=== PATIENT | female | born 1990 | race American Indian/Alaskan Native ===

== ENCOUNTER 2019-06-30 07:25 | Observation (INO) | payer MEDICAID ==
[2019-06-30] MEDS ORDERED: ONDANSETRON 4 MG ODT TAB ONE (07:36)
[2019-06-30] MEDS ORDERED: ONDANSETRON 4 MG ODT TAB PO ONE (07:36)
[2019-06-30] MEDS ORDERED: ONDANSETRON 4 MG/2 ML INJ ONE (08:09)
[2019-06-30] MEDS ORDERED: ONDANSETRON 4 MG/2 ML INJ IV ONE (08:10)
[2019-06-30] MEDS ORDERED: LACTATED RINGERS 1,000 ML IV ONE (08:54)
--- NOTE | 2019-06-30 08:59 | Emergency Department Report ---
ED HPI - General Chief complaint: Nausea/Vomiting/Diarrhea Stated complaint: 3MONTHS /VOMTING/SPOTTING Time Seen by Provider: 06/30/19 08:34 Source: patient Mode of arrival: Ambulatory Limitations: No Limitations - History of Present Illness Initial comments: 28-year-old -[place] female patient without significant past medical history presents with complaints of nausea/vomiting, right upper quadrant pain, and vaginal spotting x2 days. Patient states she is 12 weeks and is currently following with Dr. Gustafson. She denies any fever/chills/sweats, hematemesis/coffee-ground emesis, diarrhea, cough, shortness of breath, chest pain, vaginal discharge, dysuria/hematuria/urinary frequency, or pelvic pain. She rates her current right upper quadrant pain as a 8/10 in severity and states the pain began in her abdomen before the nausea and vomiting. MD Complaint: abdominal pain, vaginal bleeding -: Sudden Radiation: RUQ Severity: severe Severity scale (0 -10): 8 Quality: cramping, stabbing Consistency: constant Improves with: none - Related Data Allergies Allergy/AdvReac Type Severity Reaction Status Date / Time No Known Allergies Allergy Unverified 06/30/19 07:34 ED Review of Systems ROS: Stated complaint: 3MONTHS /VOMTING/SPOTTING Other details as noted in HPI Constitutional: denies: chills, fever Eyes: denies: eye pain, eye discharge, vision change ENT: denies: throat pain Respiratory: denies: cough, shortness of breath Cardiovascular: denies: chest pain, palpitations, edema, syncope Endocrine: denies: excessive sweating Gastrointestinal: abdominal pain, nausea, vomiting, constipation. denies: diarrhea, hematemesis, melena, hematochezia Genitourinary: denies: urgency, dysuria, frequency, hematuria, dyspareunia Musculoskeletal: denies: joint swelling Skin: denies: rash, lesions Neurological: denies: headache Hematological/Lymphatic: denies: easy bleeding ED Past Medical Hx - Past Medical History Previous Medical History?: No - Surgical History Past Surgical History?: No ED Physical Exam - General Limitations: No Limitations General appearance: alert, in no apparent distress - Head Head exam: Present: atraumatic, normocephalic - Eye Eye exam: Present: normal appearance. Absent: scleral icterus - ENT ENT exam: Present: normal exam - Neck Neck exam: Present: normal inspection - Respiratory Respiratory exam: Present: normal lung sounds bilaterally. Absent: respiratory distress - Cardiovascular Cardiovascular Exam: Present: regular rate, normal rhythm. Absent: systolic murmur, diastolic murmur, rubs, gallop - GI/Abdominal GI/Abdominal exam: Present: soft, tenderness (Right upper quadrant with positive Irizarry sign), normal bowel sounds. Absent: distended, guarding, rebound, rigid, organomegaly - Extremities Exam Extremities exam: Present: normal inspection - Back Exam Back exam: Present: normal inspection. Absent: CVA tenderness (R), CVA tenderness (L) - Neurological Exam Neurological exam: Present: alert, oriented X3 - Psychiatric Psychiatric exam: Present: normal affect, normal mood - Skin Skin exam: Present: warm, dry, intact, normal color. Absent: rash, cyanosis, diaphoretic, erythema ED Course Vital Signs 06/30/19 06/30/19 07:34 15:01 Temperature 98.4 F Pulse Rate 100 H Respiratory 20 18 Rate Blood Pressure 123/88 O2 Sat by Pulse 98 99 Oximetry ED Medical Decision Making - Lab Data Result diagrams: 06/30/19 10:13 06/30/19 10:13 Lab Results 06/30/19 06/30/19 06/30/19 Range/Units 10:13 10:13 10:13 WBC 11.7 H (4.5-11.0) K/mm3 RBC 4.74 (3.65-5.03) M/mm3 Hgb 10.9 (10.1-14.3) gm/dl Hct 34.1 (30.3-42.9) % MCV 72 L (79-97) fl MCH 23 L (28-32) pg MCHC 32 (30-34) % RDW 16.7 H (13.2-15.2) % Plt Count 244 (140-440) K/mm3 Lymph % (Auto) 18.1 (13.4-35.0) % Porter % (Auto) 7.0 (0.0-7.3) % Eos % (Auto) 0.2 (0.0-4.3) % Baso % (Auto) 0.8 (0.0-1.8) % Lymph # 2.1 (1.2-5.4) K/mm3 [place] # 0.8 (0.0-0.8) K/mm3 Eos # 0.0 (0.0-0.4) K/mm3 Baso # 0.1 (0.0-0.1) K/mm3 Seg Neutrophils % 73.9 H (40.0-70.0) % Seg Neutrophils # 8.6 H (1.8-7.7) K/mm3 Sodium 134 L (137-145) mmol/L Potassium 4.0 (3.6-5.0) mmol/L Chloride 97.5 L (98-107) mmol/L Carbon Dioxide 20 L (22-30) mmol/L Anion Gap 21 mmol/L BUN 8 (7-17) mg/dL Creatinine 0.6 L (0.7-1.2) mg/dL Estimated GFR > 60 ml/min BUN/Creatinine Ratio 13 % Glucose 92 (65-100) mg/dL Calcium 9.3 (8.4-10.2) mg/dL Total Bilirubin (0.1-1.2) mg/dL Direct Bilirubin (0-0.2) mg/dL Indirect Bilirubin mg/dL AST (5-40) units/L ALT (7-56) units/L Alkaline Phosphatase (35-129) units/L Total Protein (6.3-8.2) g/dL Albumin (3.9-5) g/dL Albumin/Globulin Ratio % Lipase (13-60) units/L HCG, Quant (0-4) mIU/mL Blood Type A POSITIVE 06/30/19 06/30/19 Range/Units 10:13 10:13 WBC (4.5-11.0) K/mm3 RBC (3.65-5.03) M/mm3 Hgb (10.1-14.3) gm/dl Hct (30.3-42.9) % MCV (79-97) fl MCH (28-32) pg MCHC (30-34) % RDW (13.2-15.2) % Plt Count (140-440) K/mm3 Lymph % (Auto) (13.4-35.0) % [place] % (Auto) (0.0-7.3) % Eos % (Auto) (0.0-4.3) % Baso % (Auto) (0.0-1.8) % Lymph # (1.2-5.4) K/mm3 Porter # (0.0-0.8) K/mm3 Eos # (0.0-0.4) K/mm3 Baso # (0.0-0.1) K/mm3 Seg Neutrophils % (40.0-70.0) % Seg Neutrophils # (1.8-7.7) K/mm3 Sodium (137-145) mmol/L Potassium (3.6-5.0) mmol/L Chloride (98-107) mmol/L Carbon Dioxide (22-30) mmol/L Anion Gap mmol/L BUN (7-17) mg/dL Creatinine (0.7-1.2) mg/dL Estimated GFR ml/min BUN/Creatinine Ratio % Glucose (65-100) mg/dL Calcium (8.4-10.2) mg/dL Total Bilirubin 0.60 (0.1-1.2) mg/dL Direct Bilirubin 0.4 H (0-0.2) mg/dL Indirect Bilirubin 0.2 mg/dL AST 14 (5-40) units/L ALT 15 (7-56) units/L Alkaline Phosphatase 57 (35-129) units/L Total Protein 7.5 (6.3-8.2) g/dL Albumin 3.6 L (3.9-5) g/dL Albumin/Globulin Ratio 0.9 % Lipase 19 (13-60) units/L HCG, Quant 92558 H (0-4) mIU/mL Blood Type - Radiology Data Radiology results: report reviewed LIMITED RUQ ABDOMINAL ULTRASOUND INDICATION: RUQ PAIN. COMPARISON: No relevant prior imaging study available. FINDINGS: Pancreas: Visualized portions show no significant abnormality. Abdominal Aorta: No significant abnormality. IVC: No significant abnormality. Liver: The liver measures 18.6 cm in length. No significant abnormality. Normal hepatopedal blood flow in the main portal vein. Gallbladder: A large gallstone measuring up to 2.3 cm is identified in the gallbladder. No abnormal distention, wall thickening or surrounding fluid.. Bile ducts: No significant abnormality. Common bile duct measures 1 mm. Right kidney: No significant abnormality visualized.. Free fluid: None. Additional Findings: None. IMPRESSION: Large gallstone. No evidence for acute cholecystitis.. FIRSTTRIMESTER OBSTETRIC ULTRASOUND ULTRASOUND OB TRANSVAGINAL HISTORY: Vaginal bleeding COMPARISON: None. TECHNIQUE: Routine transabdominal and transvaginal OB ultrasound performed. FINDINGS: Uterus: Mildly enlarged measuring 12.9 x 8.7 x 10.3 cm. Gestational Sac: Well-defined oval shape and intrauterine in location. Yolk Sac: Not seen Fetus/Embryo: [place]-rump length of 6.38 cm, corresponding to an estimated gestational age of 12 weeks 5 days. Embryonic/ anatomy is too small for evaluation. Embryonic/ cardiac activity: 159bpm Placenta: Appears to be forming anteriorly Amniotic fluid volume: Subjectively appropriate for gestational age. Ovaries: The right ovary is not visualized. The left ovary is normal in size and appearance with normal blood flow, measuring 2.9 x 1.2 x 1.7 cm. Additional findings: None. IMPRESSION Early live intrauterine . - Medical Decision Making 28-year-old 12-week patient presents with complaints of sudden onset of right upper quadrant pain with nausea/vomiting and mild lower abdominal cramping and bleeding. Patient follows with ZAYNAB Wagner. OB ultrasound shows healthy viable 12-week 5-day without complications. Right upper quadrant ultrasound shows large gallstones without cholecystitis or obstruction. WBCs on CBC = 11.7. Patient is afebrile. Patient symptoms are consistent with biliary colic. Patient given Reglan and Benadryl with lactated Ringer's fluid. On p.o. challenge, patient unable to tolerate oral intake due to increase in biliary colic. Discussed patient with ZAYNAB Platt-advises admission for observation. Vitals are stable and patient is nontoxic-appearing at this time. Critical care attestation.: If time is entered above; I have spent that time in minutes in the direct care of this critically ill patient, excluding procedure time. ED Disposition Clinical Impression: Biliary colic, Gallstones Disposition: OP ADMIT IP TO THIS HOSP Is pt being admited?: Yes Condition: Stable
[2019-06-30] MEDS ORDERED: diphenhydrAMINE 50 MG/ML VIAL IV ONE (09:01)
[2019-06-30] MEDS ORDERED: METOCLOPRAMIDE 10 MG/2 ML INJ IV ONE (09:01)
[2019-06-30 10:52] LABS: Basophils # (Auto) 0.1 K/mm3 (0.0-0.1); Basophils % (Auto) 0.8 % (0.0-1.8); Eosinophils % (Auto) 0.2 % (0.0-4.3); Hematocrit 34.1 % (30.3-42.9); Hemoglobin 10.9 gm/dl (10.1-14.3); Lymphocytes # (Auto) 2.1 K/mm3 (1.2-5.4); Lymphocytes % (Auto) 18.1 % (13.4-35.0); Mean Corpuscular HGB Conc 32 % (30-34); Mean Corpuscular Volume 72 fl (79-97); Monocytes # (Auto) 0.8 K/mm3 (0.0-0.8); Platelet Count 244 K/mm3 (140-440); Red Blood Count 4.74 M/mm3 (3.65-5.03); Red Cell Distribution Width 16.7 % (13.2-15.2)
[2019-06-30 10:56] LABS: BUN/Creatinine Ratio 13; Blood Urea Nitrogen 8 mg/dL (7-17); Calcium 9.3 mg/dL (8.4-10.2); Hemolysis Index 4
[2019-06-30 11:00] LABS: Albumin 3.6 g/dL (3.9-5); Bilirubin,Direct 0.4 mg/dL (0-0.2)
--- NOTE | 2019-06-30 11:06 | Ultrasound Report ---
LIMITED RUQ ABDOMINAL ULTRASOUND INDICATION: RUQ PAIN. COMPARISON: No relevant prior imaging study available. FINDINGS: Pancreas: Visualized portions show no significant abnormality. Abdominal Aorta: No significant abnormality. IVC: No significant abnormality. Liver: The liver measures 18.6 cm in length. No significant abnormality. Normal hepatopedal blood fl ow in the main portal vein. Gallbladder: A large gallstone measuring up to 2.3 cm is identified in the gallbladder. No abnormal d istention, wall thickening or surrounding fluid.. Bile ducts: No significant abnormality. Common bile duct measures 1 mm. Right kidney: No significant abnormality visualized.. Free fluid: None. Additional Findings: None. IMPRESSION: Large gallstone. No evidence for acute cholecystitis.. Signer Name: Mazin Renee Jr, MD Signed: 06/30/2019 11:02 AM Workstation Name: [id number]
--- NOTE | 2019-06-30 11:15 | Ultrasound Report ---
FIRSTTRIMESTER OBSTETRIC ULTRASOUND ULTRASOUND OB TRANSVAGINAL HISTORY: Vaginal bleeding COMPARISON: None. TECHNIQUE: Routine transabdominal and transvaginal OB ultrasound performed. FINDINGS: Uterus: Mildly enlarged measuring 12.9 x 8.7 x 10.3 cm. Gestational Sac: Well-defined oval shape and intrauterine in location. Yolk Sac: Not seen Fetus/Embryo: [place]-rump length of 6.38 cm, corresponding to an estimated gestational age of 12 weeks 5 days. Embryonic/ anatomy is too small for evaluation. Embryonic/ cardiac activity: 159bpm Placenta: Appears to be forming anteriorly Amniotic fluid volume: Subjectively appropriate for gestational age. Ovaries: The right ovary is not visualized. The left ovary is normal in size and appearance with no rmal blood flow, measuring 2.9 x 1.2 x 1.7 cm. Additional findings: None. IMPRESSION Early live intrauterine . Signer Name: Mazin Renee Jr, MD Signed: 06/30/2019 11:11 AM Workstation Name: [id number]
--- NOTE | 2019-06-30 11:15 | Ultrasound Report ---
FIRSTTRIMESTER OBSTETRIC ULTRASOUND ULTRASOUND OB TRANSVAGINAL HISTORY: Vaginal bleeding COMPARISON: None. TECHNIQUE: Routine transabdominal and transvaginal OB ultrasound performed. FINDINGS: Uterus: Mildly enlarged measuring 12.9 x 8.7 x 10.3 cm. Gestational Sac: Well-defined oval shape and intrauterine in location. Yolk Sac: Not seen Fetus/Embryo: [place]-rump length of 6.38 cm, corresponding to an estimated gestational age of 12 weeks 5 days. Embryonic/ anatomy is too small for evaluation. Embryonic/ cardiac activity: 159bpm Placenta: Appears to be forming anteriorly Amniotic fluid volume: Subjectively appropriate for gestational age. Ovaries: The right ovary is not visualized. The left ovary is normal in size and appearance with no rmal blood flow, measuring 2.9 x 1.2 x 1.7 cm. Additional findings: None. IMPRESSION Early live intrauterine . Signer Name: Mazin Renee Jr, MD Signed: 06/30/2019 11:11 AM Workstation Name: [id number]
[2019-06-30 13:37] LABS: Bacteria,Urine 1+ /HPF (Negative); Bilirubin,Urine SM (Negative); Blood,Urine NEG (Negative); Color,Urine Amber (Yellow); Mucus,Urine 3+ /HPF
[2019-06-30 13:55] LABS: Ictotest,Urine Positive (Negative)
[2019-06-30] MEDS ORDERED: ONDANSETRON 4 MG/2 ML INJ IV PRN (16:28)
[2019-06-30] MEDS ORDERED: ACETAMINOPHEN 500 MG TAB PO PRN (16:31)
--- NOTE | 2019-06-30 17:17 | History and Physical Report ---
History of Present Illness Date of examination: 06/30/19 Date of admission: 06/30/19 14:31 Chief complaint: nausea, vomiting and RUQ pain History of present illness: Pt state she has established care with Dr. Watson at a practice in [facility]. States she was staying with her brother and sister in law and decided to come to hospital because of the nausea and ruq pain. States that throughout the thus far she has had emesis several times per day but state she was able to keep some food down until 3 days ago. State she has had back to back nausea with bonjesta, and taking her friend/family members promethaizne. Neither gave her relief of the nausea and vomiting. She also state the ruq pain has also been present for the last 3 days getting progressively worse. No fevers, no chills noted. this is pt first . She is 12 1/7 by lmp with edc of 01/11/2020. This is c/w 1st trimester sono done today. Past History Past Medical History: no pertinent history Past Surgical History: no surgical history [employer] History: chlamydia (dx this and was treated. STAN to be done @ next appt on 07/2019) Social history: no significant social history, single - Obstetrical History Expected Date of Delivery: 01/11/20 Actual Gestation: 12 Week(s) 1 Day(s) : 1 Medications and Allergies Allergies Allergy/AdvReac Type Severity Reaction Status Date / Time No Known Allergies Allergy Unverified 06/30/19 07:34 Active Meds: Active Medications Acetaminophen (Tylenol) 1,000 mg PO Q6H PRN PRN Reason: Pain, Mild (1-3) Dextrose/Lactated Ringer's (D5lr) 1,000 mls @ 150 mls/hr IV DIRECT PRISCILLA Multivitamins/Iron/Calcium ( Vitamin) 1 each PO QDAY PRISCILLA Ondansetron HCl (Zofran) 4 mg IV Q6H PRN PRN Reason: N/V unrelieved by Emiliano Promethazine HCl (Phenergan) 25 mg OR Q6H PRISCILLA - Vital Signs Vital signs: Vital Signs Temp Pulse Resp BP Pulse Ox 98.4 F 100 H 20 123/88 98 06/30/19 07:34 06/30/19 07:34 06/30/19 07:34 06/30/19 07:34 06/30/19 07:34 Temp Pulse Resp BP Pulse Ox 98.4 F 100 H 18 123/88 99 06/30/19 07:34 06/30/19 07:34 06/30/19 15:01 06/30/19 07:34 06/30/19 15:01 - Physical Exam Lungs: Positive: Normal air movement Abdomen: Positive: normal appearance, soft. Negative: distention, tenderness, guarding Genitourinary (Female): Positive: other (DEFERRED) Extremities: Positive: normal. Negative: tenderness, edema Results Result Diagrams: 06/30/19 10:13 06/30/19 10:13 Abnormal lab results 06/30/19 06/30/19 06/30/19 Range/Units 10:13 10:13 10:13 WBC 11.7 H (4.5-11.0) K/mm3 MCV 72 L (79-97) fl MCH 23 L (28-32) pg RDW 16.7 H (13.2-15.2) % Seg Neutrophils % 73.9 H (40.0-70.0) % Seg Neutrophils # 8.6 H (1.8-7.7) K/mm3 Sodium 134 L (137-145) mmol/L Chloride 97.5 L (98-107) mmol/L Carbon Dioxide 20 L (22-30) mmol/L Creatinine 0.6 L (0.7-1.2) mg/dL Direct Bilirubin (0-0.2) mg/dL Albumin (3.9-5) g/dL HCG, Quant 12248 H (0-4) mIU/mL Ur Specific [place] (1.003-1.030) 06/30/19 06/30/19 Range/Units 10:13 Unknown WBC (4.5-11.0) K/mm3 MCV (79-97) fl MCH (28-32) pg RDW (13.2-15.2) % Seg Neutrophils % (40.0-70.0) % Seg Neutrophils # (1.8-7.7) K/mm3 Sodium (137-145) mmol/L Chloride (98-107) mmol/L Carbon Dioxide (22-30) mmol/L Creatinine (0.7-1.2) mg/dL Direct Bilirubin 0.4 H (0-0.2) mg/dL Albumin 3.6 L (3.9-5) g/dL HCG, Quant (0-4) mIU/mL Ur Specific [place] 1.031 H (1.003-1.030) All other labs normal. Assessment and Plan - Patient Problems (1) Gallstones Current Visit: Yes Status: Acute Plan to address problem: -PT IS NOT INTERESTED IN SX FOR REMOVAL. I D/W DIETARY CHANGES SHE WILL NEED TO MAKE IN ORDER TO AVOID HAVING THE PAIN. I D/W THAT WHEN SHE HAS F/U APT WITH HER OB SHE NEEDS REFERRAL FOR GI/SURGERY SO THAT SHE CAN BE COUNSELED PROPERLY -SHE EXPRESSED UNDERSTANDING AND AGREES WITH PLAN OF CARE -STATES HER PAIN IS AT A 5 AT THIS TIME. (2) 12 weeks gestation of Current Visit: Yes Status: Acute (3) Nausea and vomiting during Current Visit: Yes Status: Acute Plan to address problem: -IMPROVED WITH THE IV ZOFRAN. WILL CON'T AND IF TOLERATING CLEAR DIET WILL D/C HOME IN AM WITH F/U WITH REGULAR OB. PT EXPRESSED UNDERSTANDING AND AGREES WITH PLAN OF CARE.
[2019-06-30] MEDS: D5W/LACTATED RINGERS 1,000 ML IV SCH ×2 (17:50→23:38)
[2019-06-30] MEDS: PROMETHAZINE 25 MG RECT SUPP PR SCH ×2 (17:51→23:37)
[2019-07-01] MEDS: PROMETHAZINE 25 MG RECT SUPP PR SCH (05:53)
--- NOTE | 2019-07-01 08:53 | Progress Note ---
Objective - Vital Signs Latest vital signs: Vital Signs Temp Pulse Resp BP BP Pulse Ox 07/01/19 08:19 97.8 F 73 20 102/54 99 07/01/19 01:32 98.4 F 68 18 120/72 100 06/30/19 21:57 98.1 F 71 18 118/68 100 06/30/19 19:49 98.2 F 72 20 115/72 96 06/30/19 18:41 98.1 F 84 18 110/60 98 06/30/19 17:51 20 06/30/19 15:01 18 99 Intake and Output 06/30/19 07/01/19 07/01/19 22:59 06:59 14:59 Intake Total 480 1290 Output Total 1200 Balance 480 90 Intake: IV 870 D5lr 1,000 ml @ 150 mls/ 870 hr IV DIRECT PRISCILLA Rx#: [id number] Oral 120 Intake, Free Water 360 420 Output: Urine 1200 Void 1200 Other: Total, Intake Amount 120 Total, Output Amount 400 # Voids Void 1 Weight 551 lb 2.49 oz - Labs Labs: Abnormal lab results 06/30/19 06/30/19 06/30/19 Range/Units 10:13 10:13 10:13 WBC 11.7 H (4.5-11.0) K/mm3 MCV 72 L (79-97) fl MCH 23 L (28-32) pg RDW 16.7 H (13.2-15.2) % Seg Neutrophils % 73.9 H (40.0-70.0) % Seg Neutrophils # 8.6 H (1.8-7.7) K/mm3 Sodium 134 L (137-145) mmol/L Chloride 97.5 L (98-107) mmol/L Carbon Dioxide 20 L (22-30) mmol/L Creatinine 0.6 L (0.7-1.2) mg/dL Direct Bilirubin (0-0.2) mg/dL Albumin (3.9-5) g/dL HCG, Quant 61203 H (0-4) mIU/mL Ur Specific [place] (1.003-1.030) 06/30/19 06/30/19 Range/Units 10:13 Unknown WBC (4.5-11.0) K/mm3 MCV (79-97) fl MCH (28-32) pg RDW (13.2-15.2) % Seg Neutrophils % (40.0-70.0) % Seg Neutrophils # (1.8-7.7) K/mm3 Sodium (137-145) mmol/L Chloride (98-107) mmol/L Carbon Dioxide (22-30) mmol/L Creatinine (0.7-1.2) mg/dL Direct Bilirubin 0.4 H (0-0.2) mg/dL Albumin 3.6 L (3.9-5) g/dL HCG, Quant (0-4) mIU/mL Ur Specific [place] 1.031 H (1.003-1.030)
[2019-07-01] MEDS ORDERED: PRENATAL VIT27-FE FUMARATE-FOLIC ACID VIT TAB PO SCH (10:00)
--- NOTE | 2019-07-01 12:12 | Discharge Summary ---
Providers - Providers Date of Admission: 06/30/19 14:31 Date of discharge: 07/01/19 (Pt agrees with d/c home today) Attending physician: STEVEN AHMADI Hospitalization Reason for admission: N/V and RUQ pain at 12 weeks gestation Condition: Good Hospital course: Pt resting in bed. No visible signs of distress. States "I am feeling better this morning". Pt was able to keep clear liquids down on yesterday and plans to eat breakfast this morning. Denies ABD cramping. Disposition: DC-01 TO HOME OR SELFCARE - Discharge Diagnoses (1) 12 weeks gestation of Status: Acute Comment: P: Pt instructed to schedule f/u appointment with primary OB. (2) Gallstones Status: Acute Comment: Recommend to f/u with primary OB for possible GI referral (3) Nausea and vomiting during Status: Acute Comment: P: Advised to notify provider if unable to keep food or drink down x 24 hrs. Core Measure Documentation - Palliative Care Palliative Care/ Comfort Measures: Not Applicable - Core Measures Any of the following diagnoses?: none Exam - Constitutional Vitals: Temp Pulse Resp BP Pulse Ox 97.8 F 73 20 102/54 99 07/01/19 08:19 07/01/19 08:19 07/01/19 08:19 07/01/19 08:19 07/01/19 08:19 General appearance: Present: no acute distress, well-nourished - EENT Eyes: Present: PERRL ENT: hearing intact, clear oral mucosa - Neck Neck: Present: supple, normal ROM - Respiratory Respiratory effort: normal Respiratory: bilateral: CTA - Cardiovascular Heart Sounds: Present: S1 & S2. Absent: rub, click - Extremities Extremities: pulses symmetrical, No edema Peripheral Pulses: within normal limits - Abdominal General gastrointestinal: Present: soft, non-tender, non-distended, normal bowel sounds Female genitourinary: Present: normal - Integumentary Integumentary: Present: clear, warm, dry - Musculoskeletal Musculoskeletal: gait normal, strength equal bilaterally - Psychiatric Psychiatric: appropriate mood/affect, intact judgment & insight - Neurologic Neurologic: CNII-XII intact, moves all extremities Plan Activity: no restrictions Weight Bearing Status: Full Weight Bearing Diet: regular Follow up with: JONATAN RIVAS [Other] - 3-5 Days
[2019-07-01 16:21] VITALS: BP 106/58
== END 2019-07-01 16:35 | disposition home or self-care (01) ==
LOC: ED 07:25 → OB 14:31
PROVIDERS: ADMIT Obstetrics & Gynecology; ATTEND Obstetrics & Gynecology
DX: O99.611 Diseases of the digestive system complicating pregnancy, first trimester (principal); K80.50 Calculus of bile duct without cholangitis or cholecystitis without obstruction; O21.0 Mild hyperemesis gravidarum; Z3A.12 12 weeks gestation of pregnancy
CPT/HCPCS: 36415; 76705; 76801; 76817; 80048; 80076; 81001; 82010; 83690; 84702; 85025; 86900; 86901; 96361; 96374; 96375; 99284; G0378; J1200; J2405; J2765; J7120; J7121; Q0162